=== PATIENT | male | born 2000 | race Caucasian/White ===

== ENCOUNTER 2022-10-30 15:01 | Outpatient (CLI) | payer OTHER, SELFPAY ==
[2022-10-30 18:59] LABS: Alanine Aminotransferase 27 U/L (6-50); Albumin Level 4.6 g/dL (3.5-5.1); Alkaline Phosphatase 71 U/L (38-126); Anion Gap 8 mmol/L (8-16); Aspartate Amino Transferase 42 U/L (17-59); Bilirubin,Total 0.6 mg/dL (0.2-1.3); Blood Urea Nitrogen 8 mg/dL (9-20); Calcium 9.2 mg/dL (8.4-10.2); Carbon Dioxide 28 mmol/L (22-30); Chloride 102 mmol/L (98-107); Cholesterol 219 mg/dL (0-200); Estimated Glomerular Filt Rate > 60; Glucose 96 mg/dL (65-110); HDL Direct 33 mg/dL; Sodium 138 mmol/L (137-145); Triglycerides 352 mg/dL (<150)
[2022-10-30 19:10] LABS: LDL Cholesterol Direct 131 mg/dL
[2022-10-30 19:11] LABS: Hematocrit 48.2 % (42.0-52.0); Hemoglobin 16.1 g/dL (14.0-18.0); Mean Corpuscular HGB Conc 33.4 g/dl (32-36); Mean Corpuscular Hemoglobin 29.7 pg (26-34); Mean Corpuscular Volume 88.8 fl (80-100); Mean Platelet Volume 10.3 fl (7.4-10.4); Platelet Count Result 376 k/mm3 (150-375); Red Blood Count 5.43 M/mm3 (4.6-6.20); White Blood Count 8.2 K/mm3 (4.5-10.0)
[2022-10-30 19:23] LABS: Hemoglobin A1C 5.6 % (<5.7)
[2022-10-30 19:31] LABS: Vitamin D 25 Hydroxy 27.4 ng/mL
== END 2022-10-30 15:02 | disposition home or self-care (01) ==
PROVIDERS: PCP Family Medicine; Visit Provider Family Medicine
DX: E55.9 Vitamin D deficiency, unspecified (principal); E66.9 Obesity, unspecified; Z00.00 Encounter for general adult medical examination without abnormal findings
CPT/HCPCS: 36415; 80053; 80061; 82306; 83036; 85027

== ENCOUNTER 2022-12-05 08:03 | Outpatient (CLI) | payer OTHER, SELFPAY ==
[2022-12-13 10:56] LABS: Testosterone Free 94.8 pg/mL (35.0-155.0); Testosterone Total 329 ng/dL (250-1100)
== END 2022-12-05 08:04 | disposition home or self-care (01) ==
PROVIDERS: PCP Family Medicine; Visit Provider Family Medicine
DX: E66.9 Obesity, unspecified (principal)
CPT/HCPCS: 36415; 84402; 84403; 84443

== ENCOUNTER 2023-01-16 08:07 | Outpatient (CLI) | payer OTHER, SELFPAY ==
[2023-01-16 19:09] LABS: Transferrin 280 mg/dL (206-381)
[2023-01-16 20:11] LABS: Free T4 Free Thyroxine 0.91 ng/mL (0.78-2.19)
[2023-01-21 04:38] LABS: Sex Hormone Binding Globulin 10 nmol/L (10-50)
[2023-01-23 12:38] LABS: Testosterone Free 98.6 pg/mL (35.0-155.0); Testosterone Total 320 ng/dL (250-1100)
[2023-01-24 05:07] LABS: LH 1.1 mIU/mL (1.5-9.3); Prolactin 8.7 ng/mL (***)
== END 2023-01-16 08:08 | disposition home or self-care (01) ==
PROVIDERS: PCP Family Medicine; Visit Provider Family Medicine
DX: R79.89 Other specified abnormal findings of blood chemistry (principal)
CPT/HCPCS: 36415; 82728; 83001; 83002; 84146; 84270; 84402; 84403; 84439; 84466

== ENCOUNTER 2023-02-21 08:52 | Outpatient (CLI) | payer OTHER, SELFPAY ==
[2023-02-21 19:42] LABS: Prostate Specific Antigen 1.9 ng/mL (< OR = 4.0)
[2023-02-25 15:32] LABS: Testosterone Free 72.8 pg/mL (35.0-155.0); Testosterone Total 342 ng/dL (250-1100)
== END 2023-02-21 08:53 | disposition home or self-care (01) ==
PROVIDERS: PCP Family Medicine; Visit Provider Family Medicine
DX: E29.1 Testicular hypofunction (principal); R79.89 Other specified abnormal findings of blood chemistry
CPT/HCPCS: 36415; 84153; 84402; 84403; G0103

== ENCOUNTER 2023-06-20 08:09 | Outpatient (CLI) | payer OTHER, SELFPAY ==
[2023-06-24 13:35] LABS: Testosterone Free 172.3 pg/mL (35.0-155.0); Testosterone Total 586 ng/dL (250-1100)
== END 2023-06-20 08:10 | disposition home or self-care (01) ==
LOC: ANHBWCLAB 08:11
PROVIDERS: PCP Family Medicine; Visit Provider Family Medicine
DX: G47.00 Insomnia, unspecified (principal); E29.1 Testicular hypofunction; F90.9 Attention-deficit hyperactivity disorder, unspecified type; E66.9 Obesity, unspecified
CPT/HCPCS: 36415; 84402; 84403